=== PATIENT | female | born 1950 | race Caucasian/White ===

== ENCOUNTER 2021-10-14 14:32 | Outpatient (CLI) | payer MEDICARE, SELFPAY ==
--- NOTE | 2021-10-14 15:00 | US_ITS ---
WS: [id number] TRANSABDOMINAL PELVIC AND TRANSVAGINAL PELVIC ULTRASOUND HISTORY: N93.9 - Abnormal uterine and vaginal bleeding, unspecified COMPARISON: None available. Uterus: 8.1 cm x 5.5 cm x 3.8 cm. Anteverted uterus. Shadowing from the uterus probably due to fibroi ds. Uterine shadows obscure portions of the myometrium. Endometrium: 0.8 cm. Heterogeneous endometrium is incompletely visualized. Very poorly visualized due to the shadowing from the myometrium. The portion of the endometrium visualized contains a few cysti c areas. Right ovary: 1.8 cm x 1.4 cm x 0.8 cm. Small atrophic. Left ovary: 1.6 cm x 1.0 cm x 0.7 cm. Small atrophic. No free fluid. US/US pelvic with transvaginal IMPRESSION: 1. Difficult evaluation of the uterus and endometrium. 2. Enlarged heterogeneous endometrium is incompletely visualized. Partially ob scured by shadowing from uterine fibroids. Endometrium measures 8 mm. Recommend direct visualization due to the endometrial abnormality and history of vaginal bleeding. 3. Heterogeneous uterus with shadowing. Although no discrete mass is identifie d highly suspect uterine fibroids.
== END 2021-10-14 14:33 | disposition home or self-care (01) ==
LOC: RAD 14:37
PROVIDERS: Family Provider Family Medicine; PCP Family Medicine; Visit Provider Obstetrics & Gynecology
DX: N93.9 Abnormal uterine and vaginal bleeding, unspecified (principal)
CPT/HCPCS: 76830; 76856

== ENCOUNTER 2021-10-15 05:31 | Day surgery (SDC) | payer MEDICARE, SELFPAY ==
[2021-10-14 13:19] VITALS: BMI 21.4
[2021-10-15] VITALS (8 sets, daily range): BP systolic 156–175; BP diastolic 87–98; PULSE 97–102; RESP 12–18; TEMP 36.1–36.3; O2SAT 93–98
[2021-10-15] MEDS: sodium chloride 0.9% 1,000 ML 30 ML IV (06:39)
[2021-10-15] MEDS: ketorolac 30 mg/mL INJ IVP (06:39)
--- NOTE | 2021-10-15 06:39 | ANES.PREANE2 ---
Pre-Anesthetic Assessment Height/Weight: Height 1.68 m Weight 60.328 kg Preop Diagnosis: pmb Operation Date: 10/15/21 07:00 Proposed Procedures p Hysteroscopy dilation and currettafe w/ Myosure 23851/85414/42350/N95.0(Not Applicable) - Jelly Griggs MD s Dilation And Curettage (D&C)(Not Applicable) - Jelly Griggs MD Familial anesthetic complications: None Was Beta Conor taken within 24 hours: N/A Was Clonidine taken within 24 hours: N/A Last intake: > 8hrs Social No alcohol and No tobacco Exam alert, oriented x 3, clear to auscultation bilaterally and regular rate & rhythm Airway Mallampati: Class I Dentition: other (pulled teeth) Pulmonary None reported CV/HEM None reported None reported Hepatic None reported GI None reported Metabolic None reported Musc/skel None reported Neuropsych None reported Anesthetic Plan ASA status: 1 Anesthesia: General Risk of > 500 ml blood loss (7ml/kg in children): No Medications/Allergies Home Medications Medication Instructions Recorded Confirmed Last Taken Type ascorbate calcium (vitamin C) 500 500 mg PO DAILY 02/01/21 10/15/21 10/14/21 History mg tablet ascorbic acid 100 mg-elderberry 1 tab PO DAILY tab 02/01/21 10/15/21 10/14/21 History fruit 50 mg chewable tablet (Airborne (elderberry)) cholecalciferol (vitamin D3) 10 10 mcg PO DAILY 02/01/21 10/15/21 10/14/21 History mcg (400 unit) capsule magnesium 30 mg tablet 30 mg PO DAILY 02/01/21 10/15/21 10/14/21 History multivitamin 1 tab PO DAILY 02/01/21 10/15/21 10/14/21 History zinc 50 mg tablet 50 mg PO DAILY 02/01/21 10/15/21 10/14/21 History vitamin A palmitate 10,000 unit 10,000 unit PO DAILY 09/27/21 10/15/21 10/14/21 History capsule misoprostol 200 mcg tablet 600 mcg PO Q6H #12 tab 10/09/21 10/15/21 10/15/21 Rx (Cytotec) Allergies Allergy/AdvReac Type Severity Reaction Status Date / Time No Known Allergies Allergy Verified 10/15/21 06:19 Current Medications Generic Name Dose Route Start Last Admin Trade Name Freq PRN Reason Stop Dose Admin Sodium Chloride 1,000 mls @ 30 mls/hr 10/15/21 06:15 10/15/21 06:39 Sodium Chloride 0.9% IV 10/16/21 06:14 30 mls/hr .Q24H CHARITO Administration PFSH Anesthesia Medical History Tachycardia Uterine prolapse Surgical History History of appendectomy Family History Mother CAD (coronary artery disease) Hypertension Hyperlipidemia Brother Myocardial infarct Grandfather Cancer Maternal - unsure but wound up in his hip Family/Other Cancer Paternal Aunt- Leukemia Hypertension Maternal Uncles Family/Other Hypertension Maternal Aunts Denies family history of Diabetes Chronic kidney disease (CKD) Stroke Data Anesthesia Cardiac Studies: Cardiac Event Monitor 09/25/20
--- NOTE | 2021-10-15 06:55 | W.PM.OPSUD ---
Surgery/Procedure H&P Update DATE OF PROCEDURE: October 15, 2021 DATE H&P PERFORMED: 10/09/21 H&P UPDATE INFORMATION: I have reviewed H&P completed within last 30 days, I have examined patient prior to procedure and No changes to prior documentation PREOP DIAGNOSIS: pmb PLANNED PROCEDURE: Operation Date: 10/15/21 07:00 Proposed Procedures p Hysteroscopy dilation and currettafe w/ Myosure 98328/62453/36861/N95.0(Not Applicable) - Jelly Griggs MD s Dilation And Curettage (D&C)(Not Applicable) - Jelly Griggs MD Related Problem List Diagnoses (1) PMB (postmenopausal bleeding): (2) Complete uterine prolapse:
--- NOTE | 2021-10-15 08:08 | P.OP_ITS ---
Operative Report Date of procedure: October 15, 2021 Pre-op diagnosis: Preop Diagnosis pmb Post-op diagnosis: same Post-op findings: 12 week sized uterus with excessive tissue Procedure done: hysteroscopy, dilation and curettage with myosure, complete uterine prolapse Specimens removed/disposition: endometrial curettings to pathology Surgeon: Jelly Griggs Anesthesia: General Estimated blood loss (mL): 2 IV fluids (mL): 400 Complications: none Findings: 12 week sized uterus with excessive tissue present hysteroscopy deficit 640 ml Condition: stable Disposition: PACU Procedure: The patient was taken to the operating room where monitored anesthesia was administered and to be adequate. She was prepped and draped in the normal sterile fashion in the dorsal lithotomy position in [facility]. A weighted speculum was placed into the vagina and the anterior lip of the cervix grasped with a single-tooth tenaculum. The uterus was sounded to 12cm. The cervix was dilated to 16 [place]. The hysteroscope was advanced into the endometrial cavity. There was excessive tissue visualized. The MyoSure device was activated and the tissue was removed. Pictures were taken pre and post procedure. All instruments were removed. The patient tolerated the procedure well. Sponge lap and needle counts were correct x3. She was taken to the recovery room in stable condition.
--- NOTE | 2021-10-15 08:15 | PM.DCS ---
Discharge Providers Date of Admission: 10/15/21 Date of Discharge: October 15, 2021 Attending Provider at Admission: Jelly Griggs MD Attending Provider at Discharge: Jelly Griggs MD Primary Care Provider: Gagan Loya MD Diagnoses at Discharge Discharge Diagnosis (1) PMB (postmenopausal bleeding): Status: Acute (2) Complete uterine prolapse: Status: Acute Reason for Visit Reason for Visit: N95.0 Hospital Course Hospital Course The patient was admitted for surgery. She did well postoperatively and was ready for discharge. Discharge Data Studies Completed and Pending Pending at discharge Category Date Time Status ES surgery / GI images Routine Exams 10/15/21 06:24 Taken Pathology: Surgical [PTH] Routine Pth 10/15/21 08:06 Ordered Vitals Last Vital Signs Temp 96.9 F L 10/15/21 06:46 Pulse 102 H 10/15/21 06:46 Resp 18 10/15/21 06:46 BP 173/98 10/15/21 06:46 Pulse Ox 98 10/15/21 06:46 Discharge Plan Discharge Patient Disposition: Home Condition: Stable Prescriptions: Continued ascorbic acid-elderberry fruit [Airborne (elderberry)] 100-50 mg tablet,chewable 1 tab PO DAILY 0RF multivitamin Tablet 1 tab PO DAILY 0RF cholecalciferol (vitamin D3) 10 mcg (400 unit) capsule 10 mcg PO DAILY 0RF ascorbate calcium (vitamin C) 500 mg tablet 500 mg PO DAILY 0RF magnesium 30 mg tablet 30 mg PO DAILY 0RF zinc 50 mg tablet 50 mg PO DAILY 0RF misoprostol [Cytotec] 200 mcg tablet 600 mcg PO Q6H Qty: 12 0RF Rx Instructions: take first three pills at noon on 10/14. Take every 6 hours. last dose 6 am 10/15 vitamin A palmitate 10,000 unit capsule 10,000 unit PO DAILY 0RF Discharge Orders: Discharge Order (Routine); Ordered 10/15/21 Ordered By: Jelly Griggs Discharge Attestations Time Spent in Discharge Care*: less than 30 min Quality Metrics Clinical Quality Measures [ No reported AMI, CVA or VTE this stay] Coding Level of Care Code Acute Chg FW DC note Diagnoses PMB (postmenopausal bleeding) N95.0 Complete uterine prolapse N81.3
--- NOTE | 2021-10-15 08:22 | P.PCN_ITS ---
PACU note Narrative: VSS, Good respiratory effort, report to [employer] ANALYST Exam: awake
--- NOTE | 2021-10-15 08:22 | PM.PACU ---
PACU note Narrative: VSS, Good respiratory effort, report to DELIVERY ASSISTANT Exam: awake
--- NOTE | 2021-10-15 13:46 | ANE.PACU2 ---
Inpatient post-anesthesia follow up: Airway intact: Yes Vital signs: Temperature 97.0 F Pulse Rate 97 Respiratory Rate 18 Blood Pressure 170/95 Pulse Oximetry 94 Oxygen Delivery Me thod Room Air Oxygen Flow Rate 6 Fraction of Inspir ed Oxygen Hydration adequate: Yes Nausea and vomiting: No Pain level: 1 Mental status: Baseline
== END 2021-10-15 09:12 | disposition home or self-care (01) ==
PROVIDERS: PCP Family Medicine; Visit Provider Obstetrics & Gynecology
PROC: 0UDB8ZZ Extraction of Endometrium, Via Natural or Artificial Opening Endoscopic (ICD-10-PCS; CPT 58558; principal; 2021-10-15 07:00)
PROC: (CPT 58120; 2021-10-15 07:00)
DX: N95.0 Postmenopausal bleeding (principal); N81.3 Complete uterovaginal prolapse; Z82.49 Family history of ischemic heart disease and other diseases of the circulatory system
CPT/HCPCS: 58558; 88305; J0330; J0690; J1100; J1885; J2405; J2704; J3010; J3490; J7030

== ENCOUNTER 2021-10-21 08:21 | Emergency (ER) | payer MEDICARE, SELFPAY ==
[2021-10-21 08:32] VITALS: BP 198/84; PULSE 66; RESP 12; TEMP 36.7; O2SAT 98; BMI 21.4
[2021-10-21 08:41] VITALS: BP 183/92; PULSE 97; RESP 18; TEMP 37.1; O2SAT 98
--- NOTE | 2021-10-21 08:54 | XRR_ITS ---
PROCEDURE INFORMATION: Exam: XR Chest Exam date and time: 10/21/2021 9:06 AM Age: 71 years old Clinical indication: Pain; Chest pressure; Patient HX: Patient states weird feeling in chest. ; Additional info: Chest pain TECHNIQUE: Imaging protocol: XR of the chest. Views: 1 view. COMPARISON: ES surgery / GI images 10/15/2021 4:36 AM FINDINGS: Lungs: The lung parenchyma is clear. Pleural spaces: No pneumothorax. No pleural effusion. Heart/Mediastinum: The cardiomediastinal silhouette is within normal limits. Bones/joints: Unremarkable. XR/XR chest 1V portable [id number] IMPRESSION: No acute cardiopulmonary abnormality.
--- NOTE | 2021-10-21 08:55 | ECG_ITS ---
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 Measurements Intervals [place] Rate: 97 P: 61 MO: 145 QRS: -2 QRSD: 98 T: 27 QT: 373 QTc: 476 Interpretive Statements SINUS RHYTHM WITH FREQUENT VENTRICULAR PREMATURE COMPLEXES IN A BIGEMINAL PATTERN RIGHT ATRIAL ENLARGEMENT [0.3mV P-WAVE] LEFT ATRIAL ENLARGEMENT [-0.15mV P-WAVE IN V1/V2] LOW QRS VOLTAGE IN PRECORDIAL LEADS [QRS DEFLECTION < 1.0 mV IN CHEST LEADS] INCOMPLETE RIGHT BUNDLE BRANCH BLOCK [90+ ms QRS DURATION, TERMINAL R IN V1/V2, 40+ ms S IN I/aVL/V4/V5/V6] MODERATE ST DEPRESSION [0.05+ mV ST DEPRESSION] INTERPRETATION BASED ON A DEFAULT AGE OF 40 YEARS No previous ECG available for comparison Electronically Signed On 10-21-2021 19:42:34 CDT by Damián Gale M.D. [id number]
--- NOTE | 2021-10-21 08:56 | W.ED.CHESTPA ---
HPI - Chest Pain General: Chief Complaint: Chest Pain Stated Complaint: Uncomfortable feeling in chest area and numbness Time Seen by Provider: 10/21/21 08:44 History of Present Illness: Patient comes in with chest pain. States that yesterday while in spiritism she had an episode that felt like some pressure in her chest that radiated to her jaw. States she felt like maybe she had slept wrong on her neck. States the episode lasted for an hour or 2 and then went away. States that today she woke up and was fine then developed numbness in her left jaw with a twinge as she describes it in her left chest that radiated into her left arm. states the symptoms are mostly resolved at this time. Associated symptoms: Deny abdominal pain, dyspnea, fever(s), nausea, palpitations or vomiting Review of Systems Const: Denies: fever(s) or body aches Eyes: Denies: change in vision or blurry vision ENMT: Denies: throat pain or odynophagia Card: Reports: chest pain; Denies: palpitations Resp: Denies: dyspnea or productive cough GI: Denies: abdominal pain, nausea or vomiting : Denies: flank pain or dysuria Musc: Denies: neck pain or back pain Skin/Breast: Denies: rash or pruritus Neuro: Denies: headache(s) or numbness in extremities Psych: Denies: anxiety or change in appetite Endo: Denies: polyuria or excessive sweating PFSH ED PFSH: Medical History Tachycardia Uterine prolapse Surgical History History of appendectomy Family History Mother CAD (coronary artery disease) Hypertension Hyperlipidemia Brother Myocardial infarct Grandfather Cancer Maternal - unsure but wound up in his hip Family/Other Cancer Paternal Aunt- Leukemia Hypertension Maternal Uncles Family/Other Hypertension Maternal Aunts Denies family history of Diabetes Chronic kidney disease (CKD) Stroke Physical Exam Const: COMMON NORMALS: no acute distress, patient oriented x3, healthy appearing and alert HENMT: COMMON NORMALS: normocephalic and atraumatic HEAD & SCALP: normocephalic and atraumatic Eye: COMMON NORMALS: Equal, round and reactive pupils present and EOMs intact bilaterally PUPIL: Yes Equal, round and reactive pupils present Neck/C-Spine: COMMON NORMALS: full ROM and supple Resp: COMMON NORMALS: normal respiratory effort, No retractions and No use of accessory muscles Cardio: COMMON NORMALS: regular rate and regular rhythm RATE: regular rate RHYTHM: regular rhythm GI: COMMON NORMALS: Normal to inspection, nondistended, normoactive bowel sounds present, Soft to palpation and non-tender PALPATION: Yes Soft to palpation Back/Pelvis: COMMON NORMALS: thoracic and lumbar spine normal to inspection and no thoracic nor lumbar tenderness Extremity: COMMON NORMALS: normal to inspection and full ROM Neuro: COMMON NORMALS: patient oriented x3 SENSORIUM/ORIENTATION: Yes alert Psych: COMMON NORMALS: mental status grossly normal and cooperative Skin: COMMON NORMALS: no rashes or lesions noted and no wounds GENERAL SKIN EXAM: no rashes or lesions noted Course Vital Signs: Vital signs: Vital Signs Temperature 98.7 F 10/21/21 08:41 Pulse Rate 84 10/21/21 10:30 Respiratory Rate 18 10/21/21 10:30 Blood Pressure 137/66 10/21/21 10:30 Pulse Oximetry 96 10/21/21 10:30 MDM - Chest Pain Medical Decision Making Patient comes in with chest pain. States that yesterday while in spiritism she had an episode that felt like some pressure in her chest that radiated to her jaw. States she felt like maybe she had slept wrong on her neck. States the episode lasted for an hour or 2 and then went away. States that today she woke up and was fine then developed numbness in her left jaw with a twinge as she describes it in her left chest that radiated into her left arm. states the symptoms are mostly resolved at this time. Physical exam is unremarkable except for frequent PVCs in a bigeminal rhythm. Denies any history of coronary artery disease. Will check labs, EKG, give aspirin, and reassess. On reassessment I talked to the patient about the test results. Will discharge home at this time with precautions to return for worsening or changing symptoms. Will encourage her to follow-up with her primary care physician for an outpatient stress test Lab Data : 10/21/21 09:00 10/21/21 09:00 Radiology Impressions Chest X-Ray 10/21/21 08:54 IMPRESSION: No acute cardiopulmonary abnormality. Laboratory Results WBC 9.2 10^3/uL (4.0-10.0) 10/21/21 09:00 RBC 4.98 10^6/uL (4.1-5.3) 10/21/21 09:00 Hgb 14.7 g/dL (11.5-15.3) 10/21/21 09:00 Hct 43.8 % (37.0-47.0) 10/21/21 09:00 MCV 88.0 fl (81-99) 10/21/21 09:00 MCH 29.5 pg (28.0-34.0) 10/21/21 09:00 MCHC 33.6 g/dL (30.0-36.0) 10/21/21 09:00 RDW 12.9 % (12.1-15.1) 10/21/21 09:00 Plt Count 251 10^3/cmm (130-400) 10/21/21 09:00 MPV 9.8 fL (7.4-10.4) 10/21/21 09:00 Neut % (Auto) 80.3 % 10/21/21 09:00 Lymph % (Auto) 10.5 % 10/21/21 09:00 [place] % (Auto) 6.8 % 10/21/21 09:00 Eos % (Auto) 0.5 % 10/21/21 09:00 Baso % (Auto) 0.8 % 10/21/21 09:00 Neut # (Auto) 7.41 10^3/uL (1.8-7.7) 10/21/21 09:00 Lymph # (Auto) 1.0 10^3/uL (0.8-4.8) 10/21/21 09:00 [place] # (Auto) 0.6 10^3/uL (0.2-0.9) 10/21/21 09:00 Eos # (Auto) 0.1 10^3/uL (0.0-0.8) 10/21/21 09:00 Baso # (Auto) 0.1 10^3/uL (0.0-0.1) 10/21/21 09:00 Nucleated RBC % (auto) 0 % 10/21/21 09:00 Nucleated RBCs # 0.0 /100WBC 10/21/21 09:00 Sodium 141 mmol/L (136-145) 10/21/21 09:00 Potassium 3.8 mmol/L (3.5-5.1) 10/21/21 09:00 Chloride 102 mmol/L (98-107) 10/21/21 09:00 Carbon Dioxide 28 mmol/L (22-29) 10/21/21 09:00 Anion Gap 14.8 (5-19) 10/21/21 09:00 BUN 8 mg/dL (8-23) 10/21/21 09:00 Creatinine 0.6 mg/dL (0.5-0.9) 10/21/21 09:00 GFR Calculation Not Reportable 10/21/21 09:00 Glucose 105 mg/dL (65-115) 10/21/21 09:00 Calculated Osmolality 291 mOsm/kg (285-295) 10/21/21 09:00 Calcium 9.4 mg/dL (8.5-10.5) 10/21/21 09:00 Total Bilirubin 0.5 mg/dL (0.15-1.2) 10/21/21 09:00 AST 16 U/L (0-32) 10/21/21 09:00 ALT 14 U/L (0-33) 10/21/21 09:00 Alkaline Phosphatase 72 IU/L (35-105) 10/21/21 09:00 Troponin T Baseline 6 ng/L (0-10) 10/21/21 09:00 Troponin T 120 Minute 6.12 ng/L (0-10) 10/21/21 10:47 Total Protein 7.3 g/dL (6.6-8.7) 10/21/21 09:00 Albumin 4.6 g/dL (3.5-5.2) 10/21/21 09:00 Globulin 2.7 g/dL (1.3-4.6) 10/21/21 09:00 Discharge Plan Discharge Patient Disposition: Home Clinical Impression: Numbness, Nonspecific chest pain Condition: Stable Prescriptions: No Action multivitamin Tablet 1 tab PO QAM 0RF ascorbate calcium (vitamin C) 500 mg tablet 1,000 mg PO QAM 0RF zinc 50 mg tablet 50 mg PO DAILY 0RF magnesium oxide 400 mg magnesium Tablet 400 mg PO DAILY 0RF Elderberry Juice Concentrate 1 tsp PO DAILY 0RF Vitamin D3 1 cap PO DAILY 0RF vitamin A 1 cap PO DAILY 0RF Discharge Orders: Discharge ED (Routine); Ordered 10/21/21 Ordered By: Guillermo Morgan Referrals: Gagan Loya MD [Primary Care Provider] - Coding Level of Care Code ED Pals Specialist for Chg Fwd Exam Comprehensive
[2021-10-21 09:08] LABS: Basophils # 0.1 10^3/uL (0.0-0.1); Basophils % 0.8 %; Eosinophils # 0.1 10^3/uL (0.0-0.8); Eosinophils % 0.5 %; Hematocrit 43.8 % (37.0-47.0); Hemoglobin 14.7 g/dL (11.5-15.3); Lymphocytes % 10.5 %; Mean Corpuscular HGB Conc 33.6 g/dL (30.0-36.0); Mean Corpuscular Hemoglobin 29.5 pg (28.0-34.0); Mean Platelet Volume 9.8 fL (7.4-10.4); Monocytes # 0.6 10^3/uL (0.2-0.9); Monocytes % 6.8 %; Neutrophils # 7.41 10^3/uL (1.8-7.7); Neutrophils % 80.3 %; Nucleated Red Blood Cells % 0 %; Platelet Count 251 10^3/cmm (130-400); Red Blood Count 4.98 10^6/uL (4.1-5.3); Red Cell Distribution Width 12.9 % (12.1-15.1); White Blood Count 9.2 10^3/uL (4.0-10.0)
[2021-10-21] MEDS: aspirin 81 mg Chew Tablet 324 MG PO (09:09)
[2021-10-21 09:30] LABS: Alanine Aminotransferase 14 U/L (0-33); Albumin Level 4.6 g/dL (3.5-5.2); Alkaline Phosphatase 72 IU/L (35-105); Anion Gap 14.8 (5-19); Aspartate Amino Transferase 16 U/L (0-32); Blood Urea Nitrogen 8 mg/dL (8-23); Calcium 9.4 mg/dL (8.5-10.5); Carbon Dioxide 28 mmol/L (22-29); Chloride 102 mmol/L (98-107); Globulin 2.7 g/dL (1.3-4.6); Glucose 105 mg/dL (65-115); Osmolality Calculated 291 mOsm/kg (285-295); Potassium 3.8 mmol/L (3.5-5.1); Sodium 141 mmol/L (136-145); Total Bilirubin 0.5 mg/dL (0.15-1.2); Total Protein 7.3 g/dL (6.6-8.7)
[2021-10-21 09:31] LABS: Troponin(5th) Baseline 6 ng/L (0-10)
[2021-10-21 10:30] VITALS: BP 137/66; PULSE 84; RESP 18; O2SAT 96
--- NOTE | 2021-10-21 10:55 | ECG_ITS ---
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 Measurements Intervals [place] Rate: 86 P: 62 AL: 153 QRS: -1 QRSD: 110 T: 47 QT: 396 QTc: 474 Interpretive Statements SINUS RHYTHM WITH FREQUENT VENTRICULAR PREMATURE COMPLEXES IN A BIGEMINAL PATTERN POSSIBLE RIGHT ATRIAL ENLARGEMENT [0.25mV P-WAVE] LEFT ATRIAL ENLARGEMENT [-0.15mV P-WAVE IN V1/V2] LOW QRS VOLTAGE IN PRECORDIAL LEADS [QRS DEFLECTION < 1.0 mV IN CHEST LEADS] INCOMPLETE RIGHT BUNDLE BRANCH BLOCK [90+ ms QRS DURATION, TERMINAL R IN V1/V2, 40+ ms S IN I/aVL/V4/V5/V6] MINIMAL ST DEPRESSION [0.025+ mV ST DEPRESSION] Compared to ECG 10/21/2021 08:38:32 No significant changes Electronically Signed On 10-21-2021 19:44:12 CDT by Damián Gale M.D. [id number]
[2021-10-21 11:09] LABS: Troponin 5 2HR 6.12 ng/L (0-10)
[2021-10-21 11:20] LABS: Troponin 5 2HR Delta 0.12 ABS# (0-10)
[2021-10-21 11:27] VITALS: BP 126/51; PULSE 66; RESP 18; TEMP 36.6; O2SAT 99
== END 2021-10-21 11:28 | disposition home or self-care (01) ==
PROVIDERS: Emergency Provider Emergency Medicine; PCP Family Medicine
DX: R07.9 Chest pain, unspecified (principal); R20.0 Anesthesia of skin; R00.0 Tachycardia, unspecified
CPT/HCPCS: 71045; 80053; 84484; 85025; 93005; 99284

== ENCOUNTER → 2025-01-17 12:36 | Outpatient (BNVA) | payer MEDICARE, SELFPAY | PROVIDERS: PCP Family Medicine; Visit Provider Family Medicine | DX: Z00.00 Encounter for general adult medical examination without abnormal findings (principal); Z13.220 Encounter for screening for lipoid disorders | CPT/HCPCS: 80053; 80061; 85025 ==

== ENCOUNTER 2025-01-25 13:01 | Outpatient (CLI) | payer MEDICARE, SELFPAY ==
--- NOTE | 2025-01-25 13:20 | MM_ITS ---
WS: [id number] BILATERAL 3D TOMOSYNTHESIS DIGITAL SCREENING MAMMOGRAM WITH CAD CLINICAL INFORMATION: screening HISTORY: Screening mammogram. No current complaints. COMPARISON: None. TECHNIQUE: Bilateral CC and MLO. FINDINGS: The breast are composed of extremely dense tissue, which can limit the detection of small underlying mass lesions. No suspicious focal mass, asymmetry, calcifications, or architectural distortion. No evidence of malignancy. Vascular calcification.A few incidental punctate calcifications. MM/MM [facility] tomosynthesis [id number] IMPRESSION: DENSITY: The breasts are extremely dense, which lowers the sensitivity of mammo graphy. BI-RADS: 2 - Benign FOLLOW UP: 1 Year Follow-up Recommend return to annual screening mammography.
--- NOTE | 2025-01-25 14:00 | XR_ITS ---
WS: [id number] DEXA (DUAL ENERGY X-RAY ABSORPTIOMETRY) Bone mineral density was performed using a [employer] machine. HISTORY: screning COMPARISON: 09/06/2018 Lumbar spine BMD (L1-L4): 0.972 g/cm2 T score: -1.7 Z score: 0.2 Total hip BMD: Left: 0.653 g/cm2. T score: -2.8 Z score: -1.0 Right: 0.672 g/cm2. T score: -2.7 Z score: -0.8 10 year probability of a major osteoporotic fracture is 13.6%. Compared to the prior study from 09/06/2018. Lumbar spine bone mineral density has decreased by 5.4%. Bilateral hips bone mineral density has decreased by 6.2%. XR/XR DEXA axial skeleton* [id number] IMPRESSION: OSTEOPOROSIS based upon the WHO classification for females. Significant decrease in bone mineral density within both the lumbar spine and h ips since the prior study.
== END 2025-01-25 13:02 | disposition home or self-care (01) ==
LOC: RAD 13:02
PROVIDERS: PCP Family Medicine; Visit Provider Family Medicine
DX: Z12.31 Encounter for screening mammogram for malignant neoplasm of breast (principal); Z00.00 Encounter for general adult medical examination without abnormal findings; M81.0 Age-related osteoporosis without current pathological fracture; R92.343 Mammographic extreme density, bilateral breasts; I70.90 Unspecified atherosclerosis; R92.1 Mammographic calcification found on diagnostic imaging of breast
CPT/HCPCS: 77063; 77067; 77080